=== PATIENT | female | born 1950 | race Caucasian/White ===

== ENCOUNTER → 2016-06-21 | Outpatient (CLI) | payer BC ==
[~2016-06-21] MED LIST: ALBUAER19 INH; ATOR-22 PO; BECL0.3A INH; CLBPO15 TOP; CYAN10005 PO; DILT120C43 PO; LEVO25TA5 PO; MOME6000 NAE; MONT1TAB3 PO; NSNN50 NAE; ONDA4TAB10 SL; OXGN; PANT1TAB48 PO; QVRINH80 INH; RANI300T2 PO; VNTHFA/IN INH
[2016-06-21 11:01] LABS: ALT/SGPT 33 U/L (12-78); AST/SGOT 25 U/L (15-37); BLOOD UREA NITROGEN 16 mg/dl (7-18); BUN/CREATININE RATIO 23.5 (10-20); CARBON DIOXIDE 32 mmol/L (21-32); CHLORIDE 105 mmol/L (98-107); CHOLESTEROL 176 mg/dl (0-200); CREATININE 0.69 mg/dl (0.60-1.20); GLUCOSE 88 mg/dl (70-99); POTASSIUM 3.9 mmol/L (3.5-5.1); SODIUM 140 mmol/L (136-145); TRIGLYCERIDES 166 mg/dl (0-150); VERY LOW DENSITY LIPOPROT CALC 33 mg/dl
[2016-06-21 11:11] LABS: ALB/GLOB RATIO 0.9 (0.9-2); ALKALINE PHOSPHATASE 102 U/L (45-117); CHOLESTEROL/HDL RATIO 2.3; HDL CHOLESTEROL 77 mg/dl; LDL CHOLESTEROL CALCULATED 66 mg/dl
== END | disposition home or self-care (01) ==
LOC: C.LAB 09:40
PROVIDERS: ATTEND Internal Medicine
DX: Z00.00 Encounter for general adult medical examination without abnormal findings (principal); I10 Essential (primary) hypertension; E78.00 Pure hypercholesterolemia, unspecified; E06.3 Autoimmune thyroiditis; Z23 Encounter for immunization

== ENCOUNTER → 2016-07-02 | Outpatient (CLI) | payer BC ==
--- NOTE | 2016-07-02 11:07 | DIAGNOSTIC IMAGING REPORT ---
THYROID ULTRASONOGRAPHY CLINICAL HISTORY: Thyroid nodules COMPARISON STUDY: 06/08/2015 FINDINGS: The right lobe measures 42 x 15 x 18 mm. The left lobe measures 49 x 14 x 17 mm. There is a mixed echogenicity right lobe thyroid nodule measuring 10 mm located within the midpole. There is a 7 mm upper pole nodule containing possible calcifications. On the left, there is a 5 mm hypoechoic lower pole nodule. The thyroid gland is heterogeneous in echotexture and mildly hypervascular. A thyroiditis plus be considered. IMPRESSION: 1. Heterogeneous thyroid echotexture with a hypervascular gland. Underlying thyroiditis must be considered 2. Stable bilateral thyroid nodules. Electronically signed by: Vaughn Maria M.D. 07/02/2016 11:06 AM Dictated Date/Time: 07/02/2016 11:04 AM
== END | disposition home or self-care (01) ==
LOC: C.ULTRBC 10:36
PROVIDERS: ATTEND Internal Medicine
DX: E04.2 Nontoxic multinodular goiter (principal)

== ENCOUNTER → 2016-08-22 | Outpatient (CLI) | payer BC ==
[~2016-08-22] MED LIST changes: +CHOL2000 PO
--- NOTE | 2016-08-22 15:51 | DIAGNOSTIC IMAGING REPORT ---
LUMBAR SPINE 5 VIEWS HISTORY: M54.31 Sciatica of right side COMPARISON: None. FINDINGS: There is no fracture. No subluxation. Cholecystectomy. The sacrum is intact. Mild disc space narrowing at L2-L3 and L3-L4 with associated endplate osteophytes. There is also mild degenerative disc disease within the lower thoracic spine. Mild facet degenerative changes at L4-L5 and L5-S1. IMPRESSION: No fracture or subluxation within the lumbar spine. Mild degenerative changes as described above. Electronically signed by: Vladimir Shea M.D. 08/22/2016 3:50 PM Dictated Date/Time: 08/22/2016 3:48 PM
== END | disposition home or self-care (01) ==
LOC: C.RAD1850 15:13
PROVIDERS: ATTEND Nurse Practitioner
DX: M54.31 Sciatica, right side (principal)

== ENCOUNTER → 2016-09-08 | Outpatient (CLI) | payer BC | END | disposition home or self-care (01) | LOC: C.PATHSPEC 12:44 | PROVIDERS: ATTEND Obstetrics & Gynecology | DX: N90.89 Other specified noninflammatory disorders of vulva and perineum (principal) ==

== ENCOUNTER → 2016-10-09 | Outpatient (CLI) | payer BC ==
[2016-10-14 13:05] LABS: HERPES SIMPLEX CULT SOURCE GENITAL-VULVA; HERPES SIMPLEX VIRUS CULT ISOLATED (NOT ISOLATED)
[2016-10-14 16:36] LABS: HSVTYPE2REFLEX ONLY!DON'T ORDR ISOLATED (NOT ISOLATED)
== END | disposition home or self-care (01) ==
LOC: C.LABSPEC 17:28
PROVIDERS: ATTEND Physician Assistant
DX: N94.9 Unspecified condition associated with female genital organs and menstrual cycle (principal)

== ENCOUNTER → 2016-11-04 | Outpatient (CLI) | payer BC ==
[~2016-11-04] MED LIST changes: -CHOL2000 PO
--- NOTE | 2016-11-05 07:39 | MAMMOGRAPHY REPORT ---
BILATERAL DIGITAL SCREENING MAMMOGRAM TOMOSYNTHESIS WITH CAD: 11/04/2016 CLINICAL HISTORY: Routine screening. Patient has no complaints. TECHNIQUE: Breast tomosynthesis in addition to standard 2D mammography was performed. Current study was also evaluated with a Computer Aided Detection (CAD) system. COMPARISON: Comparison is made to exams dated: 10/12/2015 mammogram, 05/19/2014 mammogram, 12/02/2010 ma mmogram, 01/11/2013 mammogram, 11/30/2009 mammogram - [facility], and 04/19/2008. BREAST COMPOSITION: There are scattered areas of fibroglandular density in both breasts. FINDINGS: The parenchymal pattern is unchanged. No developing mass, architectural distortion or clus ter of suspicious microcalcifications is seen in either breast. IMPRESSION: ACR BI-RADS CATEGORY 2: BENIGN There is no mammographic evidence of malignancy. A 1 year screening mammogram is recommended. The pa tient will receive written notification of the results. Approximately 10% of breast cancers are not detected with mammography. A negative mammographic report should not delay biopsy if a clinically suggestive mass is present. Evelyn Blake M.D. ay/:11/04/2016 16:38:06 Weigh Box Tender: Remedios RUIZ(Milind)(M), [facility] letter sent: Normal 1/2 BI-RADS Code: ACR BI-RADS Category 2: Benign
== END | disposition home or self-care (01) ==
LOC: C.MAMM 13:40
PROVIDERS: ATTEND Internal Medicine
DX: Z12.31 Encounter for screening mammogram for malignant neoplasm of breast (principal)

== ENCOUNTER 2016-11-13 12:16 | Emergency (ER) | payer BC ==
[~2016-11-13] VITALS: Ht 162.6 cm; Wt 73.1 kg
[~2016-11-13 12:16] MED LIST changes: -CLBPO15 TOP; -LEVO25TA5 PO; -MOME6000 NAE; -ONDA4TAB10 SL; -OXGN; -QVRINH80 INH; -VNTHFA/IN INH
[2016-11-13 12:21] VITALS: TEMP 36.4; Ht 162.6 cm; Wt 73.1 kg
[2016-11-13] MEDS ORDERED: SODIUM CHLORIDE 0.9% 1000ML 2,000 ML IV STA (12:22)
[2016-11-13] MEDS ORDERED: ONDANSETRON INJ 2 MG/ML 2 ML VIAL IV STA (12:22)
[2016-11-13] MEDS ORDERED: OXGN (12:32)
[2016-11-13] MEDS ORDERED: VNTHFA/IN INH (12:32)
[2016-11-13] MEDS ORDERED: QVRINH80 INH (12:32)
[2016-11-13] MEDS ORDERED: MOME6000 NAE (12:32)
--- NOTE | 2016-11-13 13:14 | EMERGENCY ROOM VISIT NOTE ---
History Report prepared by Emelyn: Sabina Berg Under the Supervision of: Shelia EricksonO. First contact with patient: 12:17 Stated Complaint: n/v/d History of Present Illness The patient is a 66 year old female who presents to the Emergency Room with complaints of nausea, vomiting, and diarrhea starting a few minutes prior to arrival. The patient ate a watermelon at work which may have been rotten and did not taste good. A few minutes later, she had a sudden onset of weakness, then nausea, vomiting, and diarrhea. She currently reports some abdominal cramps but denies any pain. As per EMS, the patient looked pale upon arrival. She received 500 cc saline in route to the Emergency Room. She denies any recent ill contacts, fevers, chills, blood in stool, or any other complaints. Source of History: patient Onset: a few minutes prior to arrival Position: other (global) Symptom Intensity: No pain Quality: other (nausea, vomiting, and diarrhea) Associated Symptoms: No fevers, No chills Review of Systems See HPI for pertinent positives & negatives. A total of 10 systems reviewed and were otherwise negative. Past Medical & Surgical Medical Problems: (1) Bronchitis (2) HTN (hypertension) (3) Kidney stone (4) PNA (pneumonia) Surgical Problems: (1) History of cholecystectomy (2) History of hysterectomy Family History Diabetes mellitus FH: cancer FH: gallbladder disease FH: heart disease FH: lung disease Hypertension Kidney disease Kidney stones Seizures Social History Smoking Status: Never Smoker Alcohol Use: occasionally Marital Status: Housing Status: lives with family Occupation Status: employed Current/Historical Medications Scheduled Atorvastatin (Lipitor), 20 MG PO HS Beclomethasone Dip (Qvar), 2 PUFF INH BID Cyanocobalamin (Vitamin B-12), 500 MCG PO DAILY Diltiazem Hcl Coated Beads (Cartia Xt), 120 MG PO DAILY Home O2 Therapy (Oxygen), 2 LITERS NA HS Mometasone Furoate (Nasal) (Mometasone Furoate), 1 SPRAY TIKA DAILY Montelukast Sodium (Singulair), 10 MG PO DAILY Ondasetron Odt (Zofran Odt), 4 MG SL Q6H Pantoprazole (Protonix), 40 MG PO DAILY Ranitidine Hcl (Zantac), 150 MG PO HS Scheduled PRN Albuterol Hfa (Ventolin Hfa), 2 PUFFS INH QID PRN for COUGH/WHEEZING Allergies Coded Allergies: Amoxicillin (Verified Allergy, Intermediate, RASH, 04/24/15) Benzalkonium Chloride (Verified Allergy, Intermediate, HIVES, 04/24/15) Benzocaine (Verified Allergy, Intermediate, HIVES, 04/24/15) Butamben (Verified Allergy, Intermediate, HIVES, 04/24/15) Cetyldimethylethylammonium [place] (Verified Allergy, Intermediate, HIVES , 04/24/15) Clavulanic Acid (Verified Allergy, Intermediate, RASH, 04/24/15) Ketamine (Verified Allergy, Intermediate, HIVES, 04/24/15) Midazolam (Verified Allergy, Intermediate, HIVES, 04/24/15) Tetracaine (Verified Allergy, Intermediate, HIVES, 04/24/15) Azithromycin (Verified Allergy, Mild, 04/24/15) Methylprednisolone (Verified Allergy, Mild, RASH, 04/24/15) Naproxen (Verified Allergy, Mild, RASH AND HIGH BP, 04/24/15) Penicillins (Verified Allergy, Mild, RASH, 04/24/15) Prednisone (Verified Allergy, Unknown, RASH AND HIGH BP, 04/24/15) Pork (Verified Adverse Reaction, Mild, SEVERE DIARRHEA, VOMITING, 04/24/15 ) Physical Exam Vital Signs Date Time Temp Pulse Resp B/P (MAP) Pulse Ox O2 Delivery O2 Flow Rate FiO2 11/13/16 16:34 101 18 126/89 95 Room Air 11/13/16 15:26 94 18 143/91 95 Room Air 11/13/16 14:02 96 18 113/63 93 Room Air 11/13/16 12:35 71 11/13/16 12:21 36.4 69 16 114/83 94 Room Air Physical Exam GENERAL: Patient is awake, alert, very anxious appearing, does not appear to be in pain. EYES: The conjunctivae are clear. The pupils are round and reactive. EARS, NOSE, MOUTH AND THROAT: The nose is without any evidence of any deformity. Mucous membranes are dry tongue is midline NECK: The neck is nontender and supple. RESPIRATORY: Normal respiratory effort is noted there is no evidence of wheezing rhonchi or rales CARDIOVASCULAR: Regular rate and rhythm noted there no murmurs rubs or gallops normal S1 normal S2 GASTROINTESTINAL: The abdomen is soft. Bowel sounds are present in all quadrants. Abdomen is nontender MUSCULOSKELETAL/EXTREMITIES: There is no evidence of gross deformity full range of motion is noted in the hips and shoulders SKIN: Skin is cool and diaphoretic. No edema appreciated. There is no obvious evidence of any rash. There are no petechiae, pallor or cyanosis noted. NEUROLOGIC: Patient is awake alert and oriented x3 strength is symmetric patellar reflexes are 2+ bilaterally Medical Decision & Procedures ER Provider Diagnostic Interpretation: X-ray results as stated below per interpretation by me and the radiologist. ABDOMEN 2VIEW W/PA CHEST RTN CLINICAL HISTORY: 66 years-old Female presenting with ABDOMINAL PAIN/GI. TECHNIQUE: PA view of the chest and supine and upright views of the abdomen were obtained. COMPARISON: Chest x-ray from May 25, [address] from 07/18/2013. FINDINGS: Mildly prominent cardiac silhouette, unchanged. Minimal opacity at the right lung base, likely atelectasis. No other focal infiltrate. No pleural effusion or pneumothorax. Cholecystectomy clips noted. 2 mm calculus noted at the left lower pole. Phleboliths also noted. Nonobstructive bowel gas pattern. No gross pneumoperitoneum. Osseous structures normal. IMPRESSION: 1. 2 mm calculus at the lower pole the left kidney. This is unchanged in position from prior CT. 2. No acute cardiopulmonary disease. Electronically signed by: Yaya Low M.D. 11/13/2016 1:48 PM Dictated Date/Time: 11/13/2016 1:45 PM Laboratory Results 11/13/16 12:55 Red Blood Count 4.94, Mean Corpuscular Volume 90.3, Mean Corpuscular Hemoglobin 29.6, Mean Corpuscular Hemoglobin Concent 32.7, Mean Platelet Volume 10.3, Neutrophils (%) (Auto) 84.1, Lymphocytes (%) (Auto) 8.2, Monocytes (%) (Auto) 6.7, Eosinophils (%) (Auto) 0.4, Basophils (%) (Auto) 0.1, Neutrophils # (Auto) 16.62, Lymphocytes # (Auto) 1.62, Monocytes # (Auto) 1.33, Eosinophils # (Auto) 0.08, Basophils # (Auto) 0.01 11/13/16 12:55 Test 11/13/16 12:55 7/20/17 14:02 White Blood Count 19.75 K/uL (4.8-10.8) Red Blood Count 4.94 M/uL (4.2-5.4) Hemoglobin 14.6 g/dL (12.0-16.0) Hematocrit 44.6 % (37-47) Mean Corpuscular Volume 90.3 fL (80-100) Mean Corpuscular Hemoglobin 29.6 pg (25-34) Mean Corpuscular Hemoglobin Concent 32.7 g/dl (32-36) Platelet Count 340 K/uL (130-400) Mean Platelet Volume 10.3 fL (7.4-10.4) Neutrophils (%) (Auto) 84.1 % Lymphocytes (%) (Auto) 8.2 % Monocytes (%) (Auto) 6.7 % Eosinophils (%) (Auto) 0.4 % Basophils (%) (Auto) 0.1 % Neutrophils # (Auto) 16.62 K/uL (1.4-6.5) Lymphocytes # (Auto) 1.62 K/uL (1.2-3.4) Monocytes # (Auto) 1.33 K/uL (0.11-0.59) Eosinophils # (Auto) 0.08 K/uL (0-0.5) Basophils # (Auto) 0.01 K/uL (0-0.2) RDW Standard Deviation 46.5 fL (36.4-46.3) RDW Coefficient of Variation 14.1 % (11.5-14.5) Immature Granulocyte % (Auto) 0.5 % Immature Granulocyte # (Auto) 0.09 K/uL (0.00-0.02) Microcytosis PRESENT Anion Gap 8.0 mmol/L (3-11) Est Creatinine Clear Calc Drug Dose 71.4 ml/min Estimated GFR () 93.1 Estimated GFR (Non- 80.3 BUN/Creatinine Ratio 19.9 (10-20) Calcium Level 8.6 mg/dl (8.5-10.1) Magnesium Level 2.0 mg/dl (1.8-2.4) Total Bilirubin 0.7 mg/dl (0.2-1) Direct Bilirubin 0.1 mg/dl (0-0.2) Aspartate Amino Transf (AST/SGOT) 25 U/L (15-37) Alanine Aminotransferase (ALT/SGPT) 28 U/L (12-78) Alkaline Phosphatase 90 U/L (45-117) Troponin I < 0.015 ng/ml (0-0.045) Total Protein 7.4 gm/dl (6.4-8.2) Albumin 3.6 gm/dl (3.4-5.0) Lipase 194 U/L (73-393) Urine Color YELLOW Urine Appearance CLEAR (CLEAR) Urine pH 6.0 (4.5-7.5) Urine Specific Pep 1.016 (1.000-1.030) Urine Protein NEG (NEG) Urine Glucose (UA) NEG (NEG) Urine Ketones NEG (NEG) Urine Occult Blood NEG (NEG) Urine Nitrite NEG (NEG) Urine Bilirubin NEG (NEG) Urine Urobilinogen NEG (NEG) Urine Leukocyte Esterase TRACE (NEG) Urine WBC (Auto) 1-5 /hpf (0-5) Urine RBC (Auto) 0-4 /hpf (0-4) Urine Hyaline Casts (Auto) 5-10 /lpf (0-5) Urine Epithelial Cells (Auto) >30 /lpf (0-5) Urine Bacteria (Auto) NEG (NEG) Laboratory results per my review. Medications Administered Medications (Trade) Dose Ordered Sig/Monster Route Start Time Stop Time Status Last Admin Dose Admin Ondansetron HCl (Zofran Inj) 4 mg NOW STAT IV 11/13/16 12:22 11/13/16 12:24 DC 11/13/16 12:38 4 MG Sodium Chloride 2,000 ml @ 999 mls/hr Q2H1M STAT IV 11/13/16 12:22 11/13/16 14:22 DC 11/13/16 12:36 999 MLS/HR ECG Indication: nausea, vomiting Rate (beats per minute): 72 Rhythm: normal sinus Findings: no ectopy, other (No acute ST segment abnormalities) Comparison ECG Date: no prior available ED Course 1217: The patient was evaluated in room C08. A complete history and physical examination were performed. 1222: Sodium Chloride 2000 ml @ 999 mls/hr IV, Zofran Inj 4 mg IV 1630: Upon reevaluation, the patient is resting comfortably. I discussed the results and treatment plan with her. She verbalized agreement of the treatment plan. She was discharged home. Medical Decision Prior records/ancillary studies reviewed. Triage Nursing notes reviewed. Additional history obtained from the family. The patient's history was concerning for nausea, vomiting, and diarrhea. Differential diagnosis: Etiologies such as gastroenteritis, food borne illness, infections, appendicitis , diverticulitis, inflammatory bowel disease, obstruction, GI bleed, biliary pathology, as well as others were entertained. The patient is a 66-year-old female who presented to the emergency department for evaluation of acute nausea vomiting and diarrhea. The patient did not have abdominal pain but did have some crampiness. She did not have a physical exam consistent with an acute surgical abdomen. The patient was diaphoretic when the medics arrived and she received IV fluids prior to arrival. She was already starting to feel somewhat improved. I discussed the patient's laboratory and radiographic studies with her. She was treated with IV fluids and IV antiemetics in the emergency department and on subsequent reevaluation was feeling much better. The patient did have an elevated white blood cell count but this time I do not feel this is related to an acute surgical process rather I feel it is a stress reaction and the acute onset of the symptoms as well as the acute resolution of symptoms made me feel that the patient could reliably follow-up as an outpatient. She was encouraged to increase her fluid intake and follow-up with her family doctor in 24 hours. She was also encouraged to return to the emergency apartment immediately if symptoms change worsen or the need arises. Medication Reconcilliation Current Medication List: was personally reviewed by me Blood Pressure Screening Patient's blood pressure: Normal blood pressure Impression Primary Impression: Nausea vomiting and diarrhea Scribe Attestation The scribe's documentation has been prepared under my direction and personally reviewed by me in its entirety. I confirm that the note above accurately reflects all work, treatment, procedures, and medical decision making performed by me. Departure Information Dispostion Home / Self-Care Prescriptions Ondasetron Odt (ZOFRAN ODT) 4 Mg Tab 4 MG SL Q6H for Nausea, #20 TAB Prov: Deepak Beatty, 11/13/16 Referrals Shanika Cao M.D. (PCP) Forms HOME CARE DOCUMENTATION FORM, IMPORTANT VISIT INFORMATION, WORK / SCHOOL INSTRUCTIONS Patient Instructions ED Vomiting Diarrhea Nonspecific Ad, My [facility] Additional Instructions Continue all medications as prescribed. Rest and avoid any strenuous activity. Drink plenty clear liquids. Follow-up with your family this week for reevaluation but return to the emergency department if symptoms worsen or if need arises.
[2016-11-13 13:37] LABS: ALT/SGPT 28 U/L (12-78); BLOOD UREA NITROGEN 16 mg/dl (7-18); BUN/CREATININE RATIO 19.9 (10-20); CALCIUM 8.6 mg/dl (8.5-10.1); CARBON DIOXIDE 25 mmol/L (21-32); CHLORIDE 109 mmol/L (98-107); CREATININE 0.78 mg/dl (0.60-1.20); GLUCOSE 92 mg/dl (70-99); POTASSIUM 3.7 mmol/L (3.5-5.1); SODIUM 142 mmol/L (136-145)
[2016-11-13 13:42] LABS: ALKALINE PHOSPHATASE 90 U/L (45-117); AST/SGOT 25 U/L (15-37)
--- NOTE | 2016-11-13 13:49 | DIAGNOSTIC IMAGING REPORT ---
ABDOMEN 2VIEW W/PA CHEST RTN CLINICAL HISTORY: 66 years-old Female presenting with ABDOMINAL PAIN/GI. TECHNIQUE: PA view of the chest and supine and upright views of the abdomen were obtained. COMPARISON: Chest x-ray from May 25, [address] from 07/18/2013. FINDINGS: Mildly prominent cardiac silhouette, unchanged. Minimal opacity at the right lung base, likely atelectasis. No other focal infiltrate. No pleural effusion or pneumothorax. Cholecystectomy clips noted. 2 mm calculus noted at the left lower pole. Phleboliths also noted. Nonobstructive bowel gas pattern. No gross pneumoperitoneum. Osseous structures normal. IMPRESSION: 1. 2 mm calculus at the lower pole the left kidney. This is unchanged in position from prior CT. 2. No acute cardiopulmonary disease. Electronically signed by: Yaya Low M.D. 11/13/2016 1:48 PM Dictated Date/Time: 11/13/2016 1:45 PM
[2016-11-13 13:58] LABS: BASO % 0.1 %; BASO ABS # 0.01 K/uL (0-0.2); COMPLETE YES; EOS % 0.4 %; HEMATOCRIT 44.6 % (37-47); IG% 0.5 %; LYMPH % 8.2 %; LYMPH ABS # 1.62 K/uL (1.2-3.4); MEAN CELL VOLUME 90.3 fL (80-100); MEAN CORPUSCULAR HEMOGLOBIN 29.6 pg (25-34); MEAN CORPUSCULAR HGB CONC 32.7 g/dl (32-36); MEAN PLATELET VOLUME 10.3 fL (7.4-10.4); MICROCYTOSIS PRESENT; MONO % 6.7 %; NEUT % 84.1 %; PLATELET COUNT 340 K/uL (130-400); RED BLOOD COUNT 4.94 M/uL (4.2-5.4); WHITE BLOOD COUNT 19.75 K/uL (4.8-10.8)
[2016-11-13 14:19] LABS: URINE APPEARANCE CLEAR (CLEAR); URINE BILIRUBIN NEG (NEG); URINE COLOR YELLOW; URINE EPITHELIAL CELL AUTO >30 /lpf (0-5); URINE NITRITE NEG (NEG); URINE SPECIFIC GRAVITY 1.016 (1.000-1.030); UROBILINOGEN NEG (NEG)
[2016-11-13 14:25] LABS: MANUAL MICROSCOPIC REQUIRED? NO; REVIEW REQ? NO
[2016-11-13] MEDS ORDERED: ONDA4TAB10 SL (15:55)
[2016-11-13 16:34] VITALS: BP 126/89; PULSE 101; O2SAT 95
[2016-11-19] MEDS ORDERED: CLBPO15 TOP (15:29)
[2016-11-19] MEDS ORDERED: LEVO25TA5 PO (15:29)
== END 2016-11-13 16:37 | disposition home or self-care (01) ==
LOC: EDBD 12:16 → C.EDC 12:16
DX: R11.2 Nausea with vomiting, unspecified (principal); R19.7 Diarrhea, unspecified; I10 Essential (primary) hypertension; Z87.01 Personal history of pneumonia (recurrent); Z87.442 Personal history of urinary calculi; Z90.49 Acquired absence of other specified parts of digestive tract; Z90.710 Acquired absence of both cervix and uterus; Z83.3 Family history of diabetes mellitus; Z82.49 Family history of ischemic heart disease and other diseases of the circulatory system; Z84.1 Family history of disorders of kidney and ureter; Z82.0 Family history of epilepsy and other diseases of the nervous system; Z79.899 Other long term (current) drug therapy

== ENCOUNTER → 2016-11-20 | Outpatient (CLI) | payer BC ==
[~2016-11-20] MED LIST changes: -ALBUAER19 INH; -BECL0.3A INH; +CLBPO15 TOP; +LEVO25TA5 PO; +MOME6000 NAE; -NSNN50 NAE; +OXGN; +QVRINH80 INH; +VNTHFA/IN INH
[2016-11-20 11:50] LABS: BASO % 0.4 %; BASO ABS # 0.03 K/uL (0-0.2); COMPLETE YES; EOS % 1.9 %; HEMATOCRIT 43.8 % (37-47); IG% 0.3 %; LYMPH % 40.2 %; LYMPH ABS # 2.91 K/uL (1.2-3.4); MEAN CELL VOLUME 91.1 fL (80-100); MEAN CORPUSCULAR HEMOGLOBIN 29.7 pg (25-34); MEAN CORPUSCULAR HGB CONC 32.6 g/dl (32-36); MEAN PLATELET VOLUME 10.5 fL (7.4-10.4); MONO % 11.3 %; NEUT % 45.9 %; PLATELET COUNT 378 K/uL (130-400); RED BLOOD COUNT 4.81 M/uL (4.2-5.4); WHITE BLOOD COUNT 7.23 K/uL (4.8-10.8)
[2016-11-20 11:56] LABS: URINE APPEARANCE CLEAR (CLEAR); URINE BILIRUBIN NEG (NEG); URINE COLOR DK YELLOW; URINE EPITHELIAL CELL AUTO >30 /lpf (0-5); URINE NITRITE NEG (NEG); URINE PH 6.5 (4.5-7.5); URINE SPECIFIC GRAVITY 1.024 (1.000-1.030); UROBILINOGEN NEG (NEG)
[2016-11-20 12:01] LABS: MANUAL MICROSCOPIC REQUIRED? NO; REVIEW REQ? NO
[2016-11-20 13:20] LABS: ALT/SGPT 33 U/L (12-78); BLOOD UREA NITROGEN 13 mg/dl (7-18); BUN/CREATININE RATIO 16.2 (10-20); CALCIUM 9.6 mg/dl (8.5-10.1); CARBON DIOXIDE 30 mmol/L (21-32); CHLORIDE 105 mmol/L (98-107); CREATININE 0.79 mg/dl (0.60-1.20); GLUCOSE 95 mg/dl (70-99); POTASSIUM 4.2 mmol/L (3.5-5.1); SODIUM 141 mmol/L (136-145)
[2016-11-20 13:22] LABS: ALKALINE PHOSPHATASE 92 U/L (45-117); AST/SGOT 20 U/L (15-37)
== END | disposition home or self-care (01) ==
LOC: C.LABBFT 08:04
PROVIDERS: ATTEND Nurse Practitioner
DX: R19.7 Diarrhea, unspecified (principal); R53.1 Weakness

== ENCOUNTER → 2017-01-03 | Outpatient (CLI) | payer BC ==
[2017-01-03 09:35] LABS: BASO % 0.8 %; BASO ABS # 0.06 K/uL (0-0.2); COMPLETE YES; EOS % 1.5 %; HEMATOCRIT 41.4 % (37-47); IG% 0.1 %; LYMPH % 43.8 %; MEAN CELL VOLUME 89.6 fL (80-100); MEAN CORPUSCULAR HEMOGLOBIN 30.3 pg (25-34); MEAN CORPUSCULAR HGB CONC 33.8 g/dl (32-36); MEAN PLATELET VOLUME 10.3 fL (7.4-10.4); MONO % 11.5 %; NEUT % 42.3 %; PLATELET COUNT 369 K/uL (130-400); RED BLOOD COUNT 4.62 M/uL (4.2-5.4); WHITE BLOOD COUNT 7.99 K/uL (4.8-10.8)
[2017-01-03 10:10] LABS: ALT/SGPT 31 U/L (12-78); BLOOD UREA NITROGEN 10 mg/dl (7-18); CARBON DIOXIDE 27 mmol/L (21-32); CHLORIDE 108 mmol/L (98-107); CHOLESTEROL 185 mg/dl (0-200); CREATININE 0.64 mg/dl (0.60-1.20); GLUCOSE 86 mg/dl (70-99); POTASSIUM 3.7 mmol/L (3.5-5.1); SODIUM 141 mmol/L (136-145); TRIGLYCERIDES 183 mg/dl (0-150); VERY LOW DENSITY LIPOPROT CALC 37 mg/dl
[2017-01-03 10:21] LABS: ALKALINE PHOSPHATASE 84 U/L (45-117); AST/SGOT 29 U/L (15-37); CHOLESTEROL/HDL RATIO 2.5; HDL CHOLESTEROL 74 mg/dl; LDL CHOLESTEROL CALCULATED 74 mg/dl
== END | disposition home or self-care (01) ==
LOC: C.LAB 08:45
PROVIDERS: ATTEND Internal Medicine
DX: Z00.00 Encounter for general adult medical examination without abnormal findings (principal); I10 Essential (primary) hypertension; E03.9 Hypothyroidism, unspecified; E78.00 Pure hypercholesterolemia, unspecified; E06.3 Autoimmune thyroiditis; E04.2 Nontoxic multinodular goiter; M85.80 Other specified disorders of bone density and structure, unspecified site

== ENCOUNTER → 2017-02-16 | Day surgery (SDC) | payer BC ==
[2016-11-19 15:29] VITALS: BMI 27.0
[2017-02-10 15:18] VITALS: BMI 27.0
[~2017-02-16] VITALS: Ht 162.6 cm; Wt 71.4 kg
[~2017-02-16] MED LIST changes: +CHOL2000 PO; +DiphenhydrAMINE HCL 50 MG/ML VIAL ONE; +LIDOCAINE HCL 2% 2 ML VIAL (20MG/ML) ONE; +MIDAZOLAM HCL 1 MG/ML 2ML VIAL ONE; +PROPOFOL IV EMULSION 10 MG/ML 20 ML VIAL IV ONE; +SODIUM CHLORIDE 0.9% 500ML 500 ML IV ONE
[2017-02-16 14:46] VITALS: Ht 162.6 cm; Wt 71.4 kg
--- NOTE | 2017-02-16 15:08 | Endo History and Physical ---
History & Physical Date of Service: Feb 16, 2017. Chief Complaint: acid reflux Referring Physician: Dr Shanika Cao History of Present Illness 66 yo CF who presents for EGD secondary to GERD Past Medical History Gastrointestinal Disorder, High Cholesterol, Hypertension, Thyroid Disease Past Surgical History Hx Cardiac Surgery: No Hx Internal Defibrillator: No Hx Pacemaker: No Hx Abdominal Surgery: Yes (ILIANA, APPY, , RISHI BSO) Hx of Implantable Prosthesis: No Hx Post-Op Nausea and Vomiting: No Hx Cancer Surgery: No Hx Thoracic Surgery: No Hx Orthopedic: Yes (RT TOE NEUROMA REMOVAL) Hx Urinary Tract Surgery: No Family History Colon CA, Polyp Social History Smoking Status: Never Smoker Hx Substance Use: No Hx Alcohol Use: Yes (OCCASIONAL) Allergies Coded Allergies: Amoxicillin (Verified Allergy, Intermediate, RASH, 02/10/17) Benzalkonium Chloride (Verified Allergy, Intermediate, HIVES, 02/10/17) Benzocaine (Verified Allergy, Intermediate, HIVES, 02/10/17) Butamben (Verified Allergy, Intermediate, HIVES, 02/10/17) Cetyldimethylethylammonium [place] (Verified Allergy, Intermediate, HIVES , 02/10/17) Clavulanic Acid (Verified Allergy, Intermediate, RASH, 02/10/17) Ketamine (Verified Allergy, Intermediate, HIVES, 02/10/17) Midazolam (Verified Allergy, Intermediate, HIVES, 02/10/17) Tetracaine (Verified Allergy, Intermediate, HIVES, 02/10/17) Azithromycin (Verified Allergy, Mild, RASH AND NAUSEA, 02/10/17) Methylprednisolone (Verified Allergy, Mild, RASH, 02/10/17) Naproxen (Verified Allergy, Mild, RASH AND HIGH BP, 02/10/17) Penicillins (Verified Allergy, Mild, RASH, 02/10/17) Prednisone (Verified Allergy, Unknown, RASH AND HIGH BP, 02/10/17) Pork (Verified Adverse Reaction, Mild, SEVERE DIARRHEA, VOMITING, 02/10/17 ) Current Medications Reported Home Medications Medications Dose Route/Sig Max Daily Dose Days Date Category Vitamin D3 (Cholecalciferol) 2,000 Unit Cap 1 Cap PO DAILY 02/10/17 Reported Clobetasol Propionate 45 Appln/15 Gm Oint 1 Appln TOP UD 11/19/16 Reported Levothyroxine Sodium 25 Mcg Tab 1 Tab PO QAM 11/19/16 Reported Oxygen Gas 2 Liters NA HS 11/13/16 Reported Mometasone Furoate (Mometasone Furoate (Nasal)) 50 Mcg/Act Spr 1 [place] TIKA DAILY PRN 11/13/16 Reported Qvar (Beclomethasone Dip) 80 Mcg/Act Aer 2 Puff INH BID 11/13/16 Reported Ventolin Hfa (Albuterol) 200 Puffs/79055 Mcg Aers 2 Puffs INH QID PRN 11/13/16 Reported Zantac (Ranitidine HCl) 300 Mg Tab 300 Mg PO HS 03/02/14 Reported Cartia Xt (Diltiazem Hcl Coated Beads) 120 Mg Cap 120 Mg PO QAM 02/13/14 Reported Protonix (Pantoprazole) 40 Mg Tab 40 Mg PO QPM 07/18/13 Reported Lipitor (Atorvastatin Calcium) 20 Mg Tab 20 Mg PO HS 07/18/13 Reported Vitamin B-12 (Cyanocobalamin) 1,000 Mcg Tab 500 Mcg PO QAM 06/22/13 Reported Singulair (Montelukast Sodium) 10 Mg Tab 10 Mg PO QPM 03/10/13 Reported Vital Signs Weight (Kilograms): 71.36 Height (Feet): 5 Height (Inches): 4 Date Time Temp Pulse Resp B/P (MAP) Pulse Ox O2 Delivery O2 Flow Rate FiO2 02/16/17 14:51 36.8 83 18 133/86 (102) 96 Room Air Physical Exam General Appearance: WD/WN, no apparent distress Respiratory/Chest: Auscultation: breath sounds normal Cardiovascular: Heart Auscultation: RRR Abdomen: Bowel Sounds: normal Inspection & Palpation: soft, non-distended, no tenderness, guarding & rebound Assessment and Plan Assessment: 66 yo CF who presents for EGD secondary to GERD Plan: Proceed with EGD.
--- NOTE | 2017-02-16 15:28 | Discharge Instructions ---
Endoscopy Patient Instructions Date / Procedure(s) Performed Feb 16, 2017. EGD Allergy Information Coded Allergies: Amoxicillin (Verified Allergy, Intermediate, RASH, 02/10/17) Benzalkonium Chloride (Verified Allergy, Intermediate, HIVES, 02/10/17) Benzocaine (Verified Allergy, Intermediate, HIVES, 02/10/17) Butamben (Verified Allergy, Intermediate, HIVES, 02/10/17) Cetyldimethylethylammonium [place] (Verified Allergy, Intermediate, HIVES , 02/10/17) Clavulanic Acid (Verified Allergy, Intermediate, RASH, 02/10/17) Ketamine (Verified Allergy, Intermediate, HIVES, 02/10/17) Midazolam (Verified Allergy, Intermediate, HIVES, 02/10/17) Tetracaine (Verified Allergy, Intermediate, HIVES, 02/10/17) Azithromycin (Verified Allergy, Mild, RASH AND NAUSEA, 02/10/17) Methylprednisolone (Verified Allergy, Mild, RASH, 02/10/17) Naproxen (Verified Allergy, Mild, RASH AND HIGH BP, 02/10/17) Penicillins (Verified Allergy, Mild, RASH, 02/10/17) Prednisone (Verified Allergy, Unknown, RASH AND HIGH BP, 02/10/17) Pork (Verified Adverse Reaction, Mild, SEVERE DIARRHEA, VOMITING, 02/10/17 ) Discharge Date / Findings Feb 16, 2017. Normal EGD Medication Instructions OK to resume all medications today as prescribed Reported Home Medications Medications Dose Route/Sig Max Daily Dose Days Date Category Vitamin D3 (Cholecalciferol) 2,000 Unit Cap 1 Cap PO DAILY 02/10/17 Reported Clobetasol Propionate 45 Appln/15 Gm Oint 1 Appln TOP UD 11/19/16 Reported Levothyroxine Sodium 25 Mcg Tab 1 Tab PO QAM 11/19/16 Reported Oxygen Gas 2 Liters NA HS 11/13/16 Reported Mometasone Furoate (Mometasone Furoate (Nasal)) 50 Mcg/Act Spr 1 [place] TIKA DAILY PRN 11/13/16 Reported Qvar (Beclomethasone Dip) 80 Mcg/Act Aer 2 Puff INH BID 11/13/16 Reported Ventolin Hfa (Albuterol) 200 Puffs/00770 Mcg Aers 2 Puffs INH QID PRN 11/13/16 Reported Zantac (Ranitidine HCl) 300 Mg Tab 300 Mg PO HS 03/02/14 Reported Cartia Xt (Diltiazem Hcl Coated Beads) 120 Mg Cap 120 Mg PO QAM 02/13/14 Reported Protonix (Pantoprazole) 40 Mg Tab 40 Mg PO QPM 07/18/13 Reported Lipitor (Atorvastatin Calcium) 20 Mg Tab 20 Mg PO HS 07/18/13 Reported Vitamin B-12 (Cyanocobalamin) 1,000 Mcg Tab 500 Mcg PO QAM 06/22/13 Reported Singulair (Montelukast Sodium) 10 Mg Tab 10 Mg PO QPM 03/10/13 Reported Provider Instructions Activity Restrictions - No exercising or heavy lifting for 24 hours. - Do not drink alcohol the day of the procedure. - Do not drive a car or operate machinery until the day after the procedure. - Do not make any important decisions or sign important papers in 24 hours after the procedure. Following Day: - Return to full activity which may include returning to work/school. Diet Start your diet with liquids and light foods (jello, soup, juice, toast). Then eat your usual diet if not nauseated. Treatment For Common After Affects For mild abdominal pain, bloating, or excessive gas: - Rest - Eat lightly - Lie on right side Follow-Up Information Follow-up with Dr Shanika Cao as scheduled Anesthesia Information What You Should Know You have had a procedure that required some medicine to reduce anxiety and discomfort. This treatment is called moderate sedation. After receiving the treatment, you may be sleepy, but you will be able to breathe on your own. The effects of the treatment may last for several hours. Follow these instructions along with Activity/Diet recommendations noted above: * Do NOT do anything where dizziness or clumsiness would be dangerous. * Rest quietly at home today, then you can be up and about tomorrow. * Have a responsible person stay with you the rest of today. * You may have had an I.V. today. If so, you may take the dressing off later today. Recommendations Call your doctor if: * Trouble breathing * Continuous vomiting for more than 24 hours * Temperature above 101 degrees * Severe abdominal pain or bloating * Pain not relieved by pain medicine ordered * There is increased drainage or redness from any incision * A large amount of rectal bleeding greater than 2-3 tablespoons. (If you had a polyp/s removed or have hemorrhoids, a small amount of blood - from the rectum is to be expected.) * You have any unanswered questions or concerns. IN THE EVENT OF A SERIOUS EMERGENCY, GO TO THE NEAREST EMERGENCY ROOM Your discharge instructions were prepared by provider Willy Gu. Patient Instructions Signature Page Juana Rogers Patient (or Guardian) Signature/Date: I have read and understand the instructions given to me by my caregivers. Caregiver/RN/Doctor Signature/Date: The above-named patient and/or guardian has received patient instructions on this date. + Original Patient Signature Page (only) stays with chart. Please make copy for patient.
--- NOTE | 2017-02-16 15:38 | GI REPORT ---
Procedure Date: 02/16/2017 3:06 PM Procedure: Upper GI endoscopy Indications: Gastro-esophageal reflux disease Medicines: Monitored Anesthesia Care Complications: No immediate complications. Estimated Blood Loss: Estimated blood loss: none. Procedure: Pre-Anesthesia Assessment: - Prior to the procedure, a History and Physical was performed, and patient medications and allergies were reviewed. The patient's tolerance of previous anesthesia was also reviewed. The risks and benefits of the procedure and the sedation options and risks were discussed with the patient. All questions were answered, and informed consent was obtained. Prior Anticoagulants: The patient has taken no previous anticoagulant or antiplatelet agents. ASA Grade Assessment: III - A patient with severe systemic disease. After reviewing the risks and benefits, the patient was deemed in satisfactory condition to undergo the procedure. After obtaining informed consent, the endoscope was passed under direct vision. Throughout the procedure, the patient's blood pressure, pulse, and oxygen saturations were monitored continuously. The scope was introduced through the mouth, and advanced to the second part of duodenum. The upper GI endoscopy was accomplished without difficulty. The patient tolerated the procedure well. Findings: The esophagus was normal. A small hiatus hernia was present. The examined duodenum was normal. Impression: - Normal esophagus. - Small hiatus hernia. - Normal examined duodenum. - No specimens collected. Recommendation: - Resume previous diet. - Continue present medications. - Return to GI office as previously scheduled. Willy Gu, DO 02/16/2017 3:37:31 PM This report has been signed electronically. Note Initiated On: 02/16/2017 3:06 PM I attest to the content of the Intraoperative Record and orders documented therein, exceptions below
[2017-02-16 15:48] VITALS: BP 136/90; PULSE 80; O2SAT 98
--- NOTE | 2017-02-16 16:16 | Anesthesiology Progress Note ---
Anesthesia Post Op Note Date & Time Feb 16, 2017 at 16:01 Vital Signs Pain Intensity: 0 Vital Signs Past 12 Hours Date Time Temp Pulse Resp B/P (MAP) Pulse Ox O2 Delivery O2 Flow Rate FiO2 02/16/17 15:48 80 18 136/90 (105) 98 Room Air 02/16/17 15:33 83 18 134/88 (103) 96 Room Air 02/16/17 14:51 36.8 83 18 133/86 (102) 96 Room Air Notes Mental Status: alert / awake / arousable, participated in evaluation Pt Amnestic to Procedure: Yes Nausea / Vomiting: adequately controlled Pain: adequately controlled Airway Patency, RR, SpO2: stable & adequate BP & HR: stable & adequate Hydration State: stable & adequate Anesthetic Complications: no major complications apparent The patient is a 66 y/o s/p EGD with Dr. Gu. Preoperatively on the anesthesia record it was noted that she had an allergy to benzocaine. She stated that she had a prior anesthetic where she had a rash after the procedure and they believed it was due to the benzocaine however they were not sure as she had received multiple medications at the same time. She did not state that she had an allergy to midazolam when asked if she had any other allergies and it was not recorded on the anesthesia evaluation that was completed by the DRILL SH[employer]ENER OPERATOR. It was also not recorded as an allergy in the [employer] EMR. During the procedure Jakub the DRILL SHARPENER OPERATOR gave her midazolam 2mg IV. She immediately became flushed in her face but did not have any hives or other symptoms. She did well the rest of the procedure with no other issues. The only other medication she received was propofol. In recovery, I was notified that the patient was still flushed. She had some redness on her face and chest. No hives were noted. She did not complain of itching and had no swelling or difficulty breathing. All vital signs were stable. She initially preferred not to have any Benadryl as she felt sleepy. The patient's redness started to slowly fade however she began complaining of some itching so Benadryl 12 mg IV has been ordered. Dr. Acosta with evaluate the patient prior to discharge. . The patient was notified that it was likely the versed that caused her symptoms. She was instructed to go to the ED with any chest pain, shortness of breath, swelling, worsening rash or hives, lightheadedness or with any other concerns. She understands and agrees.
== END | disposition home or self-care (01) ==
LOC: C.GI 14:11
PROVIDERS: ATTEND Internal Medicine
DX: K21.9 Gastro-esophageal reflux disease without esophagitis (principal); K44.9 Diaphragmatic hernia without obstruction or gangrene; I10 Essential (primary) hypertension; E78.00 Pure hypercholesterolemia, unspecified; J45.909 Unspecified asthma, uncomplicated; G47.33 Obstructive sleep apnea (adult) (pediatric); Z90.49 Acquired absence of other specified parts of digestive tract; Z98.890 Other specified postprocedural states; Z79.899 Other long term (current) drug therapy; Z68.27 Body mass index [BMI] 27.0-27.9, adult; Z90.89 Acquired absence of other organs; Z88.1 Allergy status to other antibiotic agents; Z91.018 Allergy to other foods; Z88.0 Allergy status to penicillin

== ENCOUNTER → 2017-03-04 | Outpatient (CLI) | payer BC ==
[~2017-03-04] MED LIST changes: -DiphenhydrAMINE HCL 50 MG/ML VIAL ONE; -LIDOCAINE HCL 2% 2 ML VIAL (20MG/ML) ONE; -MIDAZOLAM HCL 1 MG/ML 2ML VIAL ONE; -PROPOFOL IV EMULSION 10 MG/ML 20 ML VIAL IV ONE; -SODIUM CHLORIDE 0.9% 500ML 500 ML IV ONE
--- NOTE | 2017-03-04 13:08 | DIAGNOSTIC IMAGING REPORT ---
GASTRIC EMPTYING HISTORY: Reflux. Upper quadrant pain. Nausea. ACID REFLUX COMPARISON: None. TECHNIQUE: Following the oral administration of 1.1 mCi of technetium 99m sulfur colloid in egg sandwich and 8 ounces of water, static abdominal images are obtained anteriorly and posteriorly at 0 minutes, 1 hour, 2 hour, and 4 hour time intervals. Gastric emptying was calculated utilizing the geometric mean method. FINDINGS: There is approximately 90 % activity remaining at the 1 hour time interval (normal is less than 90%), 68 % remaining at the 2 hour time interval (normal is less than 60%), and 15 % activity remaining at the 4 hour time interval (normal is less than 10%). IMPRESSION: Mild gastric emptying delay The above report was generated using voice recognition software. It may contain grammatical, syntax or spelling errors. Electronically signed by: Jakub Gibbs M.D. 03/04/2017 1:07 PM Dictated Date/Time: 03/04/2017 1:03 PM
== END | disposition home or self-care (01) ==
LOC: C.NUCL 07:59
PROVIDERS: ATTEND Physician Assistant
DX: K21.9 Gastro-esophageal reflux disease without esophagitis (principal)

== ENCOUNTER → 2017-05-13 | Outpatient (CLI) | payer BC ==
[~2017-05-13] MED LIST changes: +PANT1TAB3 PO; -PANT1TAB48 PO
== END | disposition home or self-care (01) ==
LOC: C.LAB1850 15:34
PROVIDERS: ATTEND Physician Assistant Medical
DX: Z01.419 Encounter for gynecological examination (general) (routine) without abnormal findings (principal); R39.9 Unspecified symptoms and signs involving the genitourinary system

== ENCOUNTER 2017-05-17 07:27 | Emergency (ER) | payer BC ==
[~2017-05-17] VITALS: Ht 162.6 cm; Wt 71.2 kg
[2017-05-17] MEDS ORDERED: AMOX875T PO (07:33)
[2017-05-17 07:38] VITALS: TEMP 37.1; Ht 162.6 cm; Wt 71.2 kg
[2017-05-17 08:19] LABS: BASO % 0.6 %; BASO ABS # 0.04 K/uL (0-0.2); EOS % 0.3 %; EOS ABS # 0.02 K/uL (0-0.5); HEMATOCRIT 45.2 % (37-47); HEMOGLOBIN 15.3 g/dL (12.0-16.0); IG# 0.01 K/uL (0.00-0.02); LYMPH % 20.4 %; LYMPH ABS # 1.45 K/uL (1.2-3.4); MEAN CELL VOLUME 89.9 fL (80-100); MEAN CORPUSCULAR HEMOGLOBIN 30.4 pg (25-34); MEAN CORPUSCULAR HGB CONC 33.8 g/dl (32-36); MEAN PLATELET VOLUME 10.6 fL (7.4-10.4); MONO % 21.2 %; MONO ABS # 1.51 K/uL (0.11-0.59); NEUT % 57.4 %; NEUT ABS # 4.09 K/uL (1.4-6.5); NUCLEATED RED BLOOD CELL ABS 0.02 K/uL (0-0); PLATELET COUNT 321 K/uL (130-400); RED CELL DISTRIBUTION WIDTH CV 14.2 % (11.5-14.5); RED CELL DISTRIBUTION WIDTH SD 46.8 fL (36.4-46.3); WHITE BLOOD COUNT 7.12 K/uL (4.8-10.8)
[2017-05-17 08:26] LABS: BLOOD UREA NITROGEN 11 mg/dl (7-18); CALCIUM 9.2 mg/dl (8.5-10.1); CARBON DIOXIDE 25 mmol/L (21-32); CREATININE 0.73 mg/dl (0.60-1.20); GLUCOSE 93 mg/dl (70-99); POTASSIUM 3.9 mmol/L (3.5-5.1); SODIUM 138 mmol/L (136-145)
[2017-05-17 08:31] LABS: CKMB < 0.5 ng/ml (0.5-3.6)
--- NOTE | 2017-05-17 08:47 | DIAGNOSTIC IMAGING REPORT ---
CHEST 2 VIEWS ROUTINE HISTORY: 66 years-old Female dry cough x 4 days acute cough and fever COMPARISON: Acute abdominal series radiographs 11/13/2016 TECHNIQUE: PA and lateral views of the chest FINDINGS: Cardiomediastinal and hilar silhouettes are within normal limits. No pneumothorax, pleural effusion, focal airspace consolidation or overt pulmonary edema. Bones of the chest appear grossly intact. Cholecystectomy clips noted. IMPRESSION: No acute process. The above report was generated using voice recognition software. It may contain grammatical, syntax or spelling errors. Electronically signed by: Reynaldo Steen M.D. 05/17/2017 8:45 AM Dictated Date/Time: 05/17/2017 8:44 AM
[2017-05-17 08:53] LABS: INFLUENZA B ANTIGEN Neg for Influ B (NEG)
[2017-05-17] MEDS ORDERED: PRED50TA PO (09:20)
[2017-05-17 09:29] VITALS: BP 150/90; PULSE 100; O2SAT 98
--- NOTE | 2017-05-19 17:51 | EMERGENCY ROOM VISIT NOTE ---
History First contact with patient: 07:37 Chief Complaint: FLU LIKE SX Stated Complaint: FEVER,COUGH,DIARRHEA,SICK ALL OVER History of Present Illness The patient is a 66 year ol white d female who presents to the Emergency Room with complaints of influenza type symptoms. She states she has a history of gastroparesis. On May 07 she vomited and states she has been ill and not feeling well since that time. Over the last few days she notes fever, dry cough , nausea, diarrhea, urinary frequency, and body aches. She did see her PCP on Thursday and was started on Augmentin. She also takes inhalers and is currently on high-dose prednisone. She states it has not helped. Pain is 4/10. She continues to feel miserable. No known ill contacts. No chills or sweats. No chest pain, shortness of breath, or severe abdominal pain. Review of Systems REVIEW OF SYSTEM: HEENT: No dizziness, visual problems, hearing loss, or tinnitus. There is no difficulty swallowing and no oral lesions are present. LYMPH: No adenopathy. PULMONARY: No shortness of breath, sputum production or hemoptysis. CARDIOVASCULAR: No chest pain, palpitations, shortness of breath or peripheral edema. GASTROINTESTINAL: Positive diarrhea, nausea, vomiting, and mild abdominal pain. History of gastroparesis. GENITOURINARY: No dysuria, frequency, urgency or nocturia. NEUROLOGIC: No weakness, muscle tenderness, epilepsy or history of neurological problems. MUSCULOSKELETAL: No history of joint tenderness/swelling. No history of arthritis or arthralgias. SKIN: No rashes or lesions. PSYCHIATRIC: No history of depression or mental illness. ENDOCRINE: No history of diabetes, thyroid disorders, or abnormal hair growth. Past Medical/Surgical History Medical Problems: (1) Bronchitis (2) HTN (hypertension) (3) Kidney stone (4) PNA (pneumonia) Surgical Problems: (1) History of cholecystectomy (2) History of hysterectomy Family History Diabetes mellitus FH: cancer FH: gallbladder disease FH: heart disease FH: lung disease Hypertension Kidney disease Kidney stones Seizures Social History Smoking Status: Never Smoker Smokeless Tobacco Use: No Alcohol Use: occasionally Drug Use: none Marital Status: Housing Status: lives with family Occupation Status: employed Current/Historical Medications Scheduled Amoxicillin & Pot Clavulanate (Augmentin 875-125 mg), 1 TAB PO BID Atorvastatin (Lipitor), 20 MG PO HS Beclomethasone Dip (Qvar), 2 PUFF INH BID Cholecalciferol (Vitamin D3), 1 CAP PO DAILY Clobetasol Propionate (Clobetasol Propionate), 1 APPLN TOP UD Cyanocobalamin (Vitamin B-12), 500 MCG PO QAM Diltiazem Hcl Coated Beads (Cartia Xt), 120 MG PO QAM Home O2 Therapy (Oxygen), 2 LITERS NA HS Levothyroxine Sodium (Levothyroxine Sodium), 1 TAB PO QAM Montelukast Sodium (Singulair), 10 MG PO QPM Pantoprazole (Protonix), 40 MG PO QPM Prednisone (Prednisone), 50 MG PO DAILY Ranitidine Hcl (Zantac), 300 MG PO HS Scheduled PRN Albuterol Hfa (Ventolin Hfa), 2 PUFFS INH QID PRN for COUGH/WHEEZING Mometasone Furoate (Nasal) (Mometasone Furoate), 1 SPRAY TIKA DAILY PRN for ALLERGIES Physical Exam Vital Signs Date Time Temp Pulse Resp B/P (MAP) Pulse Ox O2 Delivery O2 Flow Rate FiO2 05/17/17 09:29 100 18 150/90 98 05/17/17 08:08 109 05/17/17 07:38 37.1 119 20 132/96 97 Room Air Physical Exam Gen.: Well-developed, well-nourished, middle-aged white female, in no acute distress. Laying on a bed. Alert and oriented. Skin:Warm and dry with good turgor. No rashes or lesions. No ecchymosis or erythema. The patient is not diaphoretic. No abrasions. HEENT: Normocephalic atraumatic. Eyes PERRLA, EOMI. No conjunctiva or scleral injection. Ears TMs intact bilaterally with good light reflexes. No erythema or bulging. No hemotympanum. Canals are patent. Nares patent bilaterally without turbinate enlargement. Clear nasal drainage. No epistaxis. Oropharynx without erythema or exudate. Uvula midline, oral mucosa moist. No lesions present. Mild postnasal drip is noted. Lymphatics are palpated without anterior or posterior chain enlargement or tenderness. Heart: Heart RRR. No MGR. Peripheral pulses are 2+. Lungs: Lungs are clear to auscultation. No crackles rhonchi or wheezing. Fair air movement. Frequent vigorous dry cough. The patient is able to take a deep breath. Abdomen: Abdomen was inspected, auscultated, and palpated. Obese. Bowel sounds present x 4. Soft, mild diffuse tenderness to palpation. Nothing focal. No hepato-splenomegaly. No masses noted. No rebound. No CVA tenderness. Musculoskeletal: Gross motor function of the upper and lower extremities is intact and unremarkable. Neurologic: Gross sensation is intact across the upper and lower extremities by soft touch. Medical Decision & Procedures Laboratory Results 05/17/17 07:54 Red Blood Count 5.03, Mean Corpuscular Volume 89.9, Mean Corpuscular Hemoglobin 30.4, Mean Corpuscular Hemoglobin Concent 33.8, Mean Platelet Volume 10.6, Neutrophils (%) (Auto) 57.4, Lymphocytes (%) (Auto) 20.4, Monocytes (%) (Auto) 21.2, Eosinophils (%) (Auto) 0.3, Basophils (%) (Auto) 0.6, Neutrophils # (Auto ) 4.09, Lymphocytes # (Auto) 1.45, Monocytes # (Auto) 1.51, Eosinophils # (Auto ) 0.02, Basophils # (Auto) 0.04 05/17/17 07:54 Test 05/17/17 07:54 05/17/17 08:10 White Blood Count 7.12 K/uL (4.8-10.8) Red Blood Count 5.03 M/uL (4.2-5.4) Hemoglobin 15.3 g/dL (12.0-16.0) Hematocrit 45.2 % (37-47) Mean Corpuscular Volume 89.9 fL (80-100) Mean Corpuscular Hemoglobin 30.4 pg (25-34) Mean Corpuscular Hemoglobin Concent 33.8 g/dl (32-36) Platelet Count 321 K/uL (130-400) Mean Platelet Volume 10.6 fL (7.4-10.4) Neutrophils (%) (Auto) 57.4 % Lymphocytes (%) (Auto) 20.4 % Monocytes (%) (Auto) 21.2 % Eosinophils (%) (Auto) 0.3 % Basophils (%) (Auto) 0.6 % Neutrophils # (Auto) 4.09 K/uL (1.4-6.5) Lymphocytes # (Auto) 1.45 K/uL (1.2-3.4) Monocytes # (Auto) 1.51 K/uL (0.11-0.59) Eosinophils # (Auto) 0.02 K/uL (0-0.5) Basophils # (Auto) 0.04 K/uL (0-0.2) RDW Standard Deviation 46.8 fL (36.4-46.3) RDW Coefficient of Variation 14.2 % (11.5-14.5) Immature Granulocyte % (Auto) 0.1 % Immature Granulocyte # (Auto) 0.01 K/uL (0.00-0.02) Nucleated RBC Absolute Count (auto) 0.02 K/uL (0-0) Nucleated Red Blood Cells % 0.2 % Anion Gap 10.0 mmol/L (3-11) Est Creatinine Clear Calc Drug Dose 75.4 ml/min Estimated GFR () 100.9 Estimated GFR (Non- 87.0 BUN/Creatinine Ratio 14.5 (10-20) Calcium Level 9.2 mg/dl (8.5-10.1) Total Creatine Kinase 114 U/L (26-192) Creatine Kinase MB < 0.5 ng/ml (0.5-3.6) Creatine Kinase MB Ratio (0-3.0) Troponin I < 0.015 ng/ml (0-0.045) Influenza Type A Antigen POS for Influ A (NEG) Influenza Type B Antigen Neg for Influ B (NEG) CBC, PRP, CK/CK-MB, troponin, and influenza swabs were obtained. Influenza is positive for influenza A. Cardiac enzymes are unremarkable. No elevation in the WBCs. ED Course Patient was educated regarding today's findings. Conservative care measures were discussed. IV was established. Labs were obtained. She is positive for influenza A. Maintain hydration. Rest as able. She is oriented on Augmentin. Possibility of bronchitis was also discussed. She has an inhaler and will continue to use this. I will add prednisone daily for 4 days. Tylenol and Motrin every 6 hours as needed for body aches and fever control. Avoid public contact for the next 10 days. When going out, she should use a mask. Follow-up with her PCP as needed. Return to the ED for any acute changes or she is unable to keep her temperature under control. Importance of handwashing was discussed. Medical Decision Possibility of influenza, viral gastroenteritis, bacterial infection, pneumonia , UTI, and cardiac injury were considered. Medication Reconcilliation Current Medication List: was personally reviewed by me Blood Pressure Screening Blood pressure disposition: Elevated BP felt to be situational Impression Primary Impression: Bronchitis Additional Impression: Influenza A Departure Information Dispostion Home / Self-Care Condition GOOD Prescriptions Prednisone (Prednisone) 50 Mg Tab 50 MG PO DAILY for 4 Days, TAB Prov: Jesus Manuel Pope,P.A. 05/17/17 Forms INCREASE FLUID INTAKE, HOME CARE DOCUMENTATION FORM, MOTRIN USE, TYLENOL USE, IMPORTANT VISIT INFORMATION Patient Instructions My [facility], ED Flu Additional Instructions Finish your antibiotic Continue with your inhaler Prednisone daily 4 days Maintain hydration Tylenol 1000mg every 6 hours and Motrin 600 mg every 6 hours for body ache and fever control Follow-up with your PCP if symptoms are not improving over the next week, or return to the ED Do not attend work or other public places until symptoms have fully resolved Wash your hands frequently Problem Qualifiers
== END 2017-05-17 09:31 | disposition home or self-care (01) ==
LOC: C.EDB 07:28 → C.EDA 09:31
DX: J11.1 Influenza due to unidentified influenza virus with other respiratory manifestations (principal); J40 Bronchitis, not specified as acute or chronic; K31.84 Gastroparesis; R19.7 Diarrhea, unspecified; I10 Essential (primary) hypertension; Z87.442 Personal history of urinary calculi; Z79.52 Long term (current) use of systemic steroids; Z83.3 Family history of diabetes mellitus; Z82.49 Family history of ischemic heart disease and other diseases of the circulatory system; Z83.79 Family history of other diseases of the digestive system; Z83.6 Family history of other diseases of the respiratory system; Z84.1 Family history of disorders of kidney and ureter; Z82.0 Family history of epilepsy and other diseases of the nervous system

== ENCOUNTER → 2017-06-30 | Outpatient (CLI) | payer BC ==
[~2017-06-30] MED LIST changes: +AMOX875T PO
== END | disposition home or self-care (01) ==
LOC: C.LAB1850 15:49
PROVIDERS: ATTEND Internal Medicine
DX: E03.9 Hypothyroidism, unspecified (principal); M85.80 Other specified disorders of bone density and structure, unspecified site; E55.9 Vitamin D deficiency, unspecified

== ENCOUNTER → 2017-07-15 | Outpatient (CLI) | payer BC | END | disposition home or self-care (01) | LOC: C.LAB1850 14:04 | PROVIDERS: ATTEND Psychiatry & Neurology Neurology | DX: F90.9 Attention-deficit hyperactivity disorder, unspecified type (principal) ==

== ENCOUNTER → 2017-07-16 | Outpatient (CLI) | payer BC ==
[2017-07-16 17:04] LABS: BLOOD UREA NITROGEN 12 mg/dl (7-18); CREATININE 0.75 mg/dl (0.60-1.20)
== END | disposition home or self-care (01) ==
LOC: C.LAB1850 15:27
PROVIDERS: ATTEND Psychiatry & Neurology Neurology
DX: G24.9 Dystonia, unspecified (principal); F90.9 Attention-deficit hyperactivity disorder, unspecified type

== ENCOUNTER → 2017-07-24 | Outpatient (CLI) | payer BC ==
[~2017-07-24] MED LIST changes: +GADAVIST IV PRN
--- NOTE | 2017-07-24 13:17 | DIAGNOSTIC IMAGING REPORT ---
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 TECHNIQUE: Multisequence, multiplanar MR imaging of the brain was performed before and after the administration of intravenous contrast. IV contrast: 7 mL of Gadavist. COMPARISON: None. FINDINGS: Ventricles and sulci normal in size. The pituitary gland is flattened consistent with an "empty sella", which is of doubtful clinical significance. Periventricular and subcortical white matter T2/FLAIR hyperintensity, nonspecific but likely indicative of chronic small vessel ischemic change. No mass effect or midline shift. No restricted diffusion to suggest acute ischemia. No hemorrhage. No extra-axial fluid collection. T2 skull base flow voids preserved. No abnormal parenchymal enhancement. Bone marrow signal intensity within the calvarium within normal limits. IMPRESSION: 1. Chronic small vessel ischemic change. No acute intracranial abnormality. No abnormal enhancement. Electronically signed by: Yaya Low M.D. 07/24/2017 1:15 PM Dictated Date/Time: 07/24/2017 1:02 PM
== END | disposition home or self-care (01) ==
LOC: C.MRIBC 12:20
PROVIDERS: ATTEND Psychiatry & Neurology Neurology
DX: F90.9 Attention-deficit hyperactivity disorder, unspecified type (principal); G24.9 Dystonia, unspecified

== ENCOUNTER → 2017-08-05 | Outpatient (CLI) | payer BC ==
[~2017-08-05] MED LIST changes: -GADAVIST IV PRN
--- NOTE | 2017-08-05 15:05 | DIAGNOSTIC IMAGING REPORT ---
ULTRASOUND OF THE THYROID GLAND CLINICAL HISTORY: Hypothyroidism. COMPARISON STUDY: Thyroid ultrasound dated 07/02/2016. TECHNIQUE: Real-time, grayscale, and color flow sonography of the thyroid gland is performed utilizing a high-frequency linear transducer. Images are reviewed in the transverse and longitudinal planes. FINDINGS: Right lobe: The right lobe of the thyroid gland is normal in size and heterogeneous in echotexture, measuring 4.6 x 1.7 x 1.6 cm. The right lobe appears hyperemic on color imaging. A coarse calcification is noted in the right lower pole. A honeycomb nodule in the posterior midpole measures 1.2 x 0.6 x 0.8 cm (previously measured 1.0 x 0.9 x 1.0 cm). Left lobe: The left lobe of the thyroid gland is normal in size and heterogeneous in echotexture, measuring 5.8 x 1.7 x 1.5 cm. The left lobe appears hyperemic on color imaging. A hypoechoic nodule in the midpole measures 0.5 x 0.6 x 0.5 cm (previously measured 0.5 x 0.5 x 0.4 cm). Isthmus: The thyroid isthmus is heterogeneous and measures 0.3 cm in AP diameter. IMPRESSION: 1. The thyroid gland is heterogeneous in echotexture and appears hyperemic on color imaging. The appearance suggests thyroiditis. Correlation with serum thyroid function studies will be required. 2. Bilateral low suspicion thyroid nodules have not significantly changed from previous. These do not meet sonographic criteria for fine-needle aspiration. Electronically signed by: Stephen Singh M.D. 08/05/2017 3:04 PM Dictated Date/Time: 08/05/2017 3:01 PM
== END | disposition home or self-care (01) ==
LOC: C.ULTR 14:23
PROVIDERS: ATTEND Internal Medicine
DX: E03.9 Hypothyroidism, unspecified (principal); E04.2 Nontoxic multinodular goiter